=== PATIENT | female | born 1965 | race Caucasian/White ===

== ENCOUNTER 2017-08-13 23:39 | Emergency (ER) | payer BC, OTHER ==
[2017-08-14] MEDS ORDERED: Ibuprofen 800 MG TAB ONE (00:24)
[2017-08-14] MEDS ORDERED: predniSONE 20 MG TAB ONE (00:53)
[2017-08-14] MEDS ORDERED: Azithromycin 250 MG TAB ONE (00:53)
== END 2017-08-14 01:08 | disposition home or self-care (01) ==
LOC: MADERS 23:39
DX: J20.9 Acute bronchitis, unspecified (principal); Z79.899 Other long term (current) drug therapy
CPT/HCPCS: 87804; J7506; J7620